=== PATIENT | female | born 1950 | race Caucasian/White ===

== ENCOUNTER 2022-03-19 08:11 | Emergency (ER) | payer MEDICARE, SELFPAY ==
--- NOTE | ~2022-03-19 | XR_ITS ---
EXAMINATION: XR chest 1V 03/19/2022 08:48 INDICATION: Dizziness PROCEDURE: AP chest COMPARISON: No prior studies for comparison. FINDINGS: The lungs are clear. The cardiomediastinal silhouette is within normal limits. There are no pleural effusions. There is no pneumothorax suspected. IMPRESSION: 1: NO ACUTE CARDIOPULMONARY DISEASE. Reviewed, dictated and finalized at location A.
--- NOTE | ~2022-03-19 | CT_ITS ---
EXAMINATION: CT BRAIN W/O DATE: 03/19/2022 08:47 INDICATION: Dizziness TECHNIQUE: Computed tomography (CT) of the head was performed without intravenous contrast. The dose- length product was 605.33 mGy-cm. Automated exposure control and iterative reconstruction technique w ere employed. COMPARISON: No prior studies for comparison. FINDINGS: Normal brain parenchymal volume for age. Normal hudson-white differentiation. No acute intrac ranial hemorrhage, infarction, mass or mass effect. No ventriculomegaly or midline shift. Midline sagittal images demonstrate a normal corpus callosum, c raniovertebral junction and sella turcica. Basilar cisterns are patent. Paranasal sinuses and mastoids are pneumatized. No depressed skull fractures. IMPRESSION: 1. No acute intracranial abnormality. Reviewed, dictated and finalized at location A.
[2022-03-19 08:16] VITALS: BP 146/67; PULSE 83; RESP 16; TEMP 37; O2SAT 99
--- NOTE | 2022-03-19 08:19 | ECG_ITS ---
Measurements Intervals [place] Rate: 70 P: 64 MN: 143 QRS: 71 QRSD: 90 T: 52 QT: 389 QTc: 422 Interpretive Statements SINUS RHYTHM WITH SINUS ARRHYTHMIA NORMAL ECG Electronically Signed On 03-19-2022 8:29:11 CDT by Moises Becerril D.O.
--- NOTE | 2022-03-19 08:23 | ED.DIZZY ---
HPI - Dizziness General Chief Complaint: Dizziness Stated Complaint: Spinning Time Seen by Provider: 03/19/22 08:22 Source: patient Mode of arrival: ambulatory Limitations: no limitations History of Present Illness HPI Narrative: 72 years old white female came from home because of dizziness. Patient got out of bed at 1:30 AM felt dizzy, everything was spinning, was not able to walk straight, associated with nausea. Patient denies any fever, chills, headache, shortness of breath, chest pain, numbness or tingling or focal neurodeficit. History of vertigo years ago. Symptoms get worse with any movement better laying still Related Data Home Medications Medication Instructions Recorded Confirmed atorvastatin 20 mg tablet tablet 03/19/22 levothyroxine 50 mcg tablet tablet 03/19/22 losartan 100 tablet 03/19/22 mg-hydrochlorothiazide 25 mg tablet potassium chloride 10 mEq tablet PO 03/19/22 tablet,extended release Allergies Allergy/AdvReac Type Severity Reaction Status Date / Time No Known Allergies Allergy Uncoded 06/16/19 22:22 Review of Systems Review of Systems: All systems reviewed & are unremarkable except as noted in HPI and below Exam Narrative: General appearance: Well-developed, well-nourished Skin: Normal color Head: Normocephalic, nontraumatic Eyes: Clear conjunctiva ENT: Oropharynx normal, ears normal, nose normal Neck: Supple, nontender Chest and respiratory: Airway patent, no respiratory distress, no accessory muscle use Heart: Regular rate/rhythm Abdomen: Soft, nontender, no organomegaly, quiet bowel sounds Vascular: Normal peripheral pulses, normal capillary refill. 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 Patient received Antivert, Zofran and Valium in the emergency room. Vital Signs Vital signs: Vital Signs Temperature 37.0 C 03/19/22 08:16 Pulse Rate 83 03/19/22 08:16 Respiratory Rate 16 03/19/22 08:16 Blood Pressure 146/67 H 03/19/22 08:16 Pulse Oximetry 99 07/01/22 08:16 Oxygen Delivery Room Air 03/19/22 08:16 Temperature 37.0 C 03/19/22 08:16 Pulse Rate 68 03/19/22 10:00 Respiratory Rate 16 03/19/22 10:00 Blood Pressure 127/62 03/19/22 10:00 Pulse Oximetry 98 03/19/22 10:00 Oxygen Delivery Room Air 03/19/22 08:16 MDM - Dizziness Lab Data Result diagrams: 03/19/22 08:56 03/19/22 08:56 Labs: Lab Results 03/19/22 03/19/22 Range/Units 08:56 08:56 WBC 6.8 (4.5-10.0) K/mm3 RBC 4.55 (4.2-5.4) M/mm3 Hgb 14.2 (12.0-15.0) g/dL Hct 43.1 (37.0-47.0) % MCV 94.7 (80-100) fl MCH 31.2 (26-34) pg MCHC 32.9 (32-36) g/dl RDW 13.5 (11.5-14.5) % Plt Count 187 (150-375) k/mm3 MPV 10.8 H (7.4-10.4) fl Immature Gran % (Auto) 0.1 (0-0.5) % Neut % (Auto) 77.4 H (45.5-73.1) % Lymph % (Auto) 12.8 L (18.3-44.2) % [place] % (Auto) 7.8 (2.6-8.5) % Eos % (Auto) 1.6 (0-4.4) % Baso % (Auto) 0.3 (0.2-1.2) % Lymph # (Auto) 0.87 L (0.9-3.2) K/mm3 [place] # (Auto) 0.5 (0.1-0.6) K/mm3 Eos # (Auto) 0.1 (0-0.3) K/mm3 Baso # (Auto) 0.0 (0.0-0.1) K/mm3 Abs Immat Gran (auto) 0.01 (0.00-0.031) K/mm3 Absolute Neuts (auto) 5.3 (1.3-6.7) K/mm3 Absolute Nucleated RBC 0.0 (0.0-0.012) K/mm3 Nucleated RBC % 0.0 (0
--- NOTE | 2022-03-19 08:41 | PC.NURSE ---
Patient to radiology
[2022-03-19] MEDS: MECLIZINE HCL 25 MG TABLET PO (08:58)
[2022-03-19 09:05] LABS: Basophils Percent Auto 0.3 % (0.2-1.2); Eosinophils Absolute Auto 0.1 K/mm3 (0-0.3); Eosinophils Percent Auto 1.6 % (0-4.4); Hematocrit 43.1 % (37.0-47.0); Hemoglobin 14.2 g/dL (12.0-15.0); Immature Granulocyte Absolute 0.01 K/mm3 (0.00-0.031); Immature Granulocyte Percent A 0.1 % (0-0.5); Lymphocytes Absolute Auto 0.87 K/mm3 (0.9-3.2); Lymphocytes Percent Auto 12.8 % (18.3-44.2); Mean Corpuscular HGB Conc 32.9 g/dl (32-36); Mean Corpuscular Hemoglobin 31.2 pg (26-34); Mean Corpuscular Volume 94.7 fl (80-100); Mean Platelet Volume 10.8 fl (7.4-10.4); Monocytes Absolute Auto 0.5 K/mm3 (0.1-0.6); Monocytes Percent Auto 7.8 % (2.6-8.5); Neutrophils Absolute Auto 5.3 K/mm3 (1.3-6.7); Neutrophils Percent Auto 77.4 % (45.5-73.1); Platelet Count Result 187 k/mm3 (150-375); Red Blood Count 4.55 M/mm3 (4.2-5.4); Red Cell Distribution Width 13.5 % (11.5-14.5); White Blood Count 6.8 K/mm3 (4.5-10.0)
[2022-03-19 09:15] LABS: Alanine Aminotransferase 18 U/L (6-35); Albumin Level 4.3 g/dL (3.5-5.1); Alkaline Phosphatase 67 U/L (38-126); Anion Gap 3 mmol/L (8-16); Aspartate Amino Transferase 28 U/L (14-36); Bilirubin,Total 0.4 mg/dL (0.2-1.3); Blood Urea Nitrogen 18 mg/dL (7-17); Carbon Dioxide 29 mmol/L (22-30); Chloride 104 mmol/L (98-107); Estimated CRCL calculation 60 ml/min; Estimated Glomerular Filt Rate > 60; Glucose 108 mg/dL (65-110); Potassium 3.9 mmol/L (3.4-5.0); Sodium 136 mmol/L (137-145)
[2022-03-19 10:00] VITALS: BP 127/62; PULSE 68; RESP 16; O2SAT 98
== END 2022-03-19 10:00 | disposition home or self-care (01) ==
PROVIDERS: Emergency Provider Emergency Medicine
DX: R42 Dizziness and giddiness (principal)
CPT/HCPCS: 36415; 70450; 71045; 80053; 85025; 93005; 99284; A9270

== ENCOUNTER 2023-10-19 12:15 | Inpatient (IN) | payer MEDICARE, SELFPAY ==
[2023-10-19] VITALS (15 sets, daily range): BP systolic 108–158; BP diastolic 66–107; PULSE 60–96; RESP 14–30; TEMP 36.4–36.7; O2SAT 95–99; BMI 25.0; BMI 25.4
--- NOTE | ~2023-10-19 | US_ITS ---
US right upper quadrant DATE: 10/19/2023 15:56 INDICATION: Epigastric and right upper quadrant abdominal pain TECHNIQUE: Real-time imaging of liver, pancreas, gallbladder COMPARISON: 10/19/2023 CT abdomen pelvis FINDINGS: Approximately 9 x 1.4 cm probable left hepatic cyst. No other hepatic space-occupying mass lesion is evident. Normal hepatopedal portal venous flow direction. No pancreatic mass lesion or pancreatic duct dilatation. The gallbladder is distended with borderline gallbladder wall thickening, measuring between 2 to 3 mm . Multiple small polyps are suggested. Positive sonographic Hernandez's sign. The gallbladder measures 4.4 mm diameter, within normal limits. IMPRESSION: Distended gallbladder with borderline gallbladder wall thickening. Multiple small polyps are suggested in the gallbladder Positive sonographic Hernandez's sign Left hepatic cyst Reviewed, dictated and finalized at Location A. Reviewed, dictated and finalized at location B. 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
--- NOTE | ~2023-10-19 | CT_ITS ---
EXAMINATION: CT abdomen pelvis w con DATE: 10/19/2023 14:55 INDICATION: Epigastric and right upper quadrant abdominal pain. Belching. Nausea and vomiting. TECHNIQUE: Computed tomography (CT) of the abdomen and pelvis was performed with 100 CC Omnipaque 350 intravenous contrast. Automated exposure control and iterative reconstruction technique were employe d. Exam dose: 407.27 mGy-cm total exam DLP. COMPARISON: None. FINDINGS: The lung bases are clear. Normal heart size. No pericardial or pleural effusion. Small sliding hiatal hernia. The gallbladder is distended. There is mild thickening of the gallbladder wall. There is minimal moisés cholecystic fat stranding. Acute cholecystitis cannot be excluded. Consider gallbladder ultrasound co rrelation. The common bile duct appears of normal caliber. No pancreatic duct dilatation. 12 mm medial segment left hepatic cyst. The liver is otherwise unremarkable. Normal splenic size. No pancreatic mass lesion or calcification. Mild bilateral diffuse adrenal hypertrophy. No adrenal mass lesion is evident. No renal mass lesion or urinary tract calculus or hydroureteronephrosis is evident. The urinary bladd er is unremarkable. There is atherosclerotic calcification but normal caliber of the abdominal aorta. No intraperitoneal or retroperitoneal or pelvic mass lesion or adenopathy or ascites is noted. Diverticulosis of the colon; no CT evidence of diverticulitis. No bowel obstruction or intraperitonea l free air is detected. Degenerative changes of lumbar spine including moderate degenerative disease and mild retrolisthesis at L1-2 and severe degenerative disease at L4-5 and particular. No suspicious osteolytic or osteoblas tic lesions. IMPRESSION: Distended gallbladder and mild gallbladder wall thickening, minimal pericholecystic fat stranding; acute cholecystitis is suggested. Recommend correlation with gallbladder ultrasound examin ation Small sliding hiatal hernia 12 mm hepatic cyst Diverticulosis of the colon Reviewed, dictated and finalized at Location A. Reviewed, dictated and finalized at location B. 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 Recommend co rrelation with gallbladder ultrasound examination Small sliding hiatal hernia 12 mm hepatic cyst Diverticulosis of the colon
[2023-10-19 12:37] LABS: Basophils Percent Auto 0.3 % (0.2-1.2); Eosinophils Percent Auto 0.6 % (0-4.4); Hematocrit 43.5 % (37.0-47.0); Lymphocytes Absolute Auto 0.85 K/mm3 (0.9-3.2); Lymphocytes Percent Auto 12.7 % (18.3-44.2); Mean Corpuscular HGB Conc 32.2 g/dl (32-36); Mean Corpuscular Hemoglobin 30.4 pg (26-34); Mean Corpuscular Volume 94.6 fl (80-100); Mean Platelet Volume 10.4 fl (7.4-10.4); Monocytes Absolute Auto 0.5 K/mm3 (0.1-0.6); Monocytes Percent Auto 7.9 % (2.6-8.5); Neutrophils Absolute Auto 5.3 K/mm3 (1.3-6.7); Neutrophils Percent Auto 78.5 % (45.5-73.1); Platelet Count Result 211 k/mm3 (150-375); Red Cell Distribution Width 13.5 % (11.5-14.5); White Blood Count 6.7 K/mm3 (4.5-10.0)
[2023-10-19 12:46] LABS: Appearance Urine Cloudy (Clear); Bacteria Urine 1+ /hpf; Bilirubin Urine Negative (Negative); Blood Urine Negative (Negative); Color Urine Yellow (Yellow); Glucose Urine UA Negative (Negative); Ketones Urine 1+ mg/dL (Negative); Leukocyte Esterase Ur Trace LEU/UL (Negative); Nitrate Urine Negative (Negative); Non Pathogenic Casts 0-2; Protein Urine Negative (Negative); RBC Urine 0-2 /hpf (0-2); Specific Grav Ur 1.016 (1.001-1.035); Squamous Epithelial Cell Urine Many /hpf (Few); pH Urine 5.5 (5.0-9.0)
[2023-10-19 12:47] LABS: Alanine Aminotransferase 61 U/L (6-35); Albumin Level 4.7 g/dL (3.5-5.1); Alkaline Phosphatase 93 U/L (38-126); Anion Gap 8 mmol/L (8-16); Aspartate Amino Transferase 47 U/L (14-36); Bilirubin,Total 1.2 mg/dL (0.2-1.3); Blood Urea Nitrogen 11 mg/dL (7-17); Calcium 9.7 mg/dL (8.4-10.2); Carbon Dioxide 30 mmol/L (22-30); Chloride 96 mmol/L (98-107); Estimated CRCL calculation 59 ml/min; Estimated Glomerular Filt Rate > 60; Glucose 116 mg/dL (65-110); Lipase 201 U/L (23-300); Potassium 3.5 mmol/L (3.4-5.0); Sodium 134 mmol/L (137-145)
[2023-10-19 12:55] LABS: Add Urine Microscopic? YES
--- NOTE | 2023-10-19 14:17 | ECG_ITS ---
Measurements Intervals [place] Rate: 68 P: 20 VT: 137 QRS: 70 QRSD: 86 T: 29 QT: 408 QTc: 435 Interpretive Statements SINUS RHYTHM NORMAL ECG COMPARED TO ECG 03/19/2022 08:23:42 NO SIGNIFICANT CHANGES Electronically Signed On 10-19-2023 14:44:25 QA AUTOMATION ENGINEER by Moises Becerril D.O.
--- NOTE | 2023-10-19 14:20 | ED.ABDPAIN ---
HPI - Abdominal Pain General Chief Complaint: Abdominal Pain <Rose Villegas PA-C - Last Filed: 10/19/23 17:41> Stated Complaint: abdominal pain <BRENNAN Banks Last Filed: 10/19/23 17:41> Time Seen by Provider: 10/19/23 13:43 <BRENNAN Banks Last Filed: 10/19/23 17:41> History of Present Illness HPI narrative: 73-year-old female reports for evaluation of epigastric abdominal pain, nausea, vomiting and belching x3 days. Patient states her pain started 3 days ago after she had a pastry. States that had improved until the next day when she ate pasta and bread and significantly worsened again, causing her nausea and 1 episode of emesis. Patient states since then her pain will wax and wane, however significantly worsens after eating food. She went to an outpatient clinic prior to coming to the ER I was advised by her PCP to come to the ER for further evaluation. She states right now she is not having pain all she pushes are epigastrium curious last abdominal surgeries include a tubal ligation. last bowel movement was this morning small caliber. She denies fever, chest pain or shortness of breath, melena, hematochezia, hematemesis, cough or congestion, dysuria, urinary frequency urgency. <BRENNAN Banks Last Filed: 10/19/23 17:41> Related Data Home Medications: Home Medications Medication Instructions Recorded Confirmed atorvastatin 20 mg tablet tablet 03/19/22 levothyroxine 50 mcg tablet tablet 03/19/22 losartan 100 tablet 03/19/22 mg-hydrochlorothiazide 25 mg tablet potassium chloride 10 mEq tablet PO 03/19/22 tablet,extended release <BRENNAN Banks Last Filed: 10/19/23 17:41> Allergies/Adverse Reactions: Allergies Allergy/AdvReac Type Severity Reaction Status Date / Time No Known Allergies Allergy Uncoded 06/16/19 22:22 <BRENNAN Banks Last Filed: 10/19/23 17:41> Review of Systems Review of Systems: CONSTITUTIONAL: Denies fever, chills, or sweats. EYES: Denies visual changes, redness, or discharge. ENT: Denies rhinorrhea, congestion, sore throat, or otalgia. CARDIOVASCULAR: Denies chest pain, palpitations, or edema. RESPIRATORY: Denies cough or dyspnea. GASTROINTESTINAL: See HPI GENITOURINARY: Denies dysuria or hematuria. SKIN: Denies rash or itching. MUSCULOSKELETAL: Denies back pain, joint pain, or myalgia. NEUROLOGIC: Denies headache, numbness, or weakness. PSYCHIATRIC: Denies anxiety or depression. <Rose Villegas PA-C - Last Filed: 10/19/23 17:41> Exam Narrative: GENERAL: Well-appearing, well-nourished, and in no acute distress. patient resting comfortably in exam bed. She is pleasant and conversational. HEAD: Normocephalic, atraumatic. EYES: PERRLA and EOMI. ENT: Nares clear, no rhinorrhea or epistaxis. Mucous membranes moist. NECK: Supple. CHEST: Clear to auscultation. No respiratory distress. HEART: Regular rate and rhythm. No murmur heard. Normal peripheral pulses. ABDOMEN: Epigastric and right upper quadrant tenderness with guarding. Negative Hernandez's. No rebound or rigidity. No CVA tenderness. Negative Ordonez Najera's and Nick's sign. EXTREMITIES: Normal range of motion. No edema. SKIN: Warm, dry, no rash. NEURO: No focal deficits. Alert and oriented x3 <Rose Villegas PA-C - Last Filed: 10/19/23 17:41> Course ETL LEAD/PA Physician Supervision For this patient encounter, I reviewed the ETL LEAD or PA documentation, treatment plan, and medical decision making; and I had [id number] time with this patient. <Edy Chavis MD - Last Filed: 10/19/23 18:23> Vital Signs Vital signs: Vital Signs Temperature 97.6 F 10/19/23 12:20 Pulse Rate 96 10/19/23 12:20 Respiratory Rate 17 10/19/23 12:20 Blood Pressure 108/84 10/19/23 12:20 Pulse Oximetry 98 10/19/23 12:20 Oxygen Delivery Room Air 10/19/23 12:20 Temperature 97.6 F 10/19/23 12:20 Pu
[2023-10-19] MEDS: SODIUM CHLORIDE 0.9% IV 1,000 ML 999 ML IV CONT (14:34)
[2023-10-19] MEDS: ONDANSETRON INJ 4 MG/2 ML VIAL IV PUSH (14:35)
[2023-10-19] MEDS: FAMOTIDINE 20 MG/2 ML VIAL IV PUSH (14:35)
[2023-10-19 14:47] LABS: Troponin I < 0.012 ng/mL (0.000-0.034)
[2023-10-19] MEDS: PANTOPRAZOLE SODIUM IV 40 MG VIAL IV PUSH (17:18)
[2023-10-19] MEDS: PIPERACILLN/TAZ 3.375GM/NS50ML 3.375 GM/50 ML BAG IVPB (17:21)
[2023-10-19] MEDS: SODIUM CHLORIDE 0.9% IV 1,000 ML 100 ML IV CONT (19:24)
--- NOTE | 2023-10-19 19:53 | PM.IMHP ---
H&P: HPI History of Present Illness Date/Time: 10/19/23 19:00 Chief Complaint: Abdominal pain. Narrative: This is a 73-year-old female smoker with hypertension, hyperlipidemia, and hypothyroidism who presented to the emergency department via private vehicle from home for evaluation of abdominal pain. The patient provides the following history. She reports generalized upper abdominal discomfort since Tuesday however it became much more severe after eating pasta for lunch on Tuesday. She reports a squeezing like discomfort throughout the upper abdomen, more so on the right, with occasional radiation through to the back. It seems to wax and wane and is worse with eating. Associated symptoms include nausea and vomiting, particularly after eating lunch on Tuesday. Since that time she has been avoiding food as it seems to worsen the pain. Due to ongoing symptoms she decided to come in today for evaluation. She denies fever, chills, sweats, hematemesis, melena, and hematochezia. She has never had similar symptoms. No history of gallbladder disease, pancreatitis, or peptic ulcers. In the ED: She was afebrile on arrival stable vital signs. CBC was really unremarkable. Labs were significant for an AST 47, ALT 61, lipase 201, sodium 134. CT of the abdomen and pelvis showed a distended gallbladder mild gallbladder wall thickening with minimal pericholecystic fat stranding. Right upper quadrant ultrasound showed a distended gallbladder with borderline gallbladder wall thickening and suggestion of multiple small polyps in the gallbladder with a positive sonographic Hernandez sign. She was given IV fluid bolus, a dose of Zosyn, and is being admitted in this setting for pain control and surgery consultation. Review of Systems Review of Systems: Twelve systems were reviewed and are negative except for as per HPI. [facility] Past Medical History Medical History Hyperlipidemia Hypertension Hypothyroidism Surgical History Surgical History History of elbow surgery Repair left elbow fracture. History of tubal ligation Family History Family History Mother Myocardial infarct Father Myocardial infarct Sibling Myocardial infarct Sibling Liver cancer Social History Social History Social History: Surrogate medical decision maker: Iris Freeman, sister. Code status: Full code. Smoking packs per day: 0.05 Smoking cigarettes per day: 1.0 Years smoked: 50 Smoking pack-years: 2.50 Alcohol intake: never Substance use: never Additional living arrangements comments: The patient lives alone in [place]. Additional occupation/education comments: Retired. Meds Home Medications and Allergies Home Medications Medication Instructions Recorded Confirmed Type atorvastatin 20 mg tablet tablet 03/19/22 History diazepam 5 mg tablet (Valium) 5 mg PO TID PRN vertigo #14 tabs 03/19/22 Rx levothyroxine 50 mcg tablet tablet 03/19/22 History losartan 100 tablet 03/19/22 History mg-hydrochlorothiazide 25 mg tablet meclizine 25 mg tablet 25 mg PO TID PRN dizziness #20 tabs 03/19/22 Rx ondansetron HCl 4 mg tablet 4 mg PO Q4H 3 doses #10 tabs 03/19/22 Rx potassium chloride 10 mEq tablet PO 03/19/22 History tablet,extended release Allergies Allergy/AdvReac Type Severity Reaction Status Date / Time No Known Allergies Allergy Uncoded 06/16/19 22:22 Vital Signs Vital Signs - 24 hr 10/19/23 12:20 10/19/23 13:52 10/19/23 14:01 Temperature 97.6 F Pulse Rate 96 66 63 Respiratory Rate 17 19 18 Blood Pressure 108/84 128/70 Pulse Oximetry 98 97 98 Oxygen Delivery Room Air 10/19/23 14:16 10/19/23 16:30 10/19/23 16:31 Temperature Pulse Rate 73 83 84 Respiratory Rate 14 17 16 Blood Pre
--- NOTE | 2023-10-19 20:26 | PC.NURSE ---
Called to give report at 2005 to third med-surge. Per CN the room is still dirty and will be at least a half hour before ready. ED CN notified.
--- NOTE | 2023-10-19 22:01 | ADMGEN ---
This patient, Jenna Dennis, was admitted to [facility] Surg Room 316-01 at 2120. Patient/family oriented to hospital policies and general routines including ID bracelet, bed and alarms, visiting hours, pain management, procedures, bathroom and other care routines, personal items, smoking policy, room service/diet, and visiting hours. Information on how to activate the Rapid Response Team has been discussed. Patient/Family are encouraged to report perceived risks to care and to ask questions if they do not understand what they are told or what they should do.
[2023-10-20] VITALS (16 sets, daily range): BP systolic 104–137; BP diastolic 45–69; PULSE 48–91; RESP 14–20; TEMP 35.9–36.7; O2SAT 92–100
[2023-10-20] MEDS: PIPERACILLN/TAZ 3.375GM/NS50ML 3.375 GM/50 ML BAG IVPB ×5 (01:03→23:06)
[2023-10-20] MEDS: SODIUM CHLORIDE 0.9% IV 1,000 ML 100 ML IV CONT (05:36)
[2023-10-20 07:58] LABS: Hemoglobin 12.9 g/dL (12.0-15.0); Mean Corpuscular HGB Conc 31.5 g/dl (32-36); Mean Corpuscular Hemoglobin 30.4 pg (26-34); Mean Corpuscular Volume 96.7 fl (80-100); Mean Platelet Volume 10.8 fl (7.4-10.4); Platelet Count Result 163 k/mm3 (150-375); Red Blood Count 4.24 M/mm3 (4.2-5.4); Red Cell Distribution Width 13.5 % (11.5-14.5); White Blood Count 4.2 K/mm3 (4.5-10.0)
[2023-10-20 08:29] LABS: Alanine Aminotransferase 57 U/L (6-35); Albumin Level 3.6 g/dL (3.5-5.1); Alkaline Phosphatase 84 U/L (38-126); Anion Gap 7 mmol/L (8-16); Aspartate Amino Transferase 55 U/L (14-36); Bilirubin,Total 1.2 mg/dL (0.2-1.3); Blood Urea Nitrogen 10 mg/dL (7-17); Calcium 8.9 mg/dL (8.4-10.2); Carbon Dioxide 28 mmol/L (22-30); Chloride 104 mmol/L (98-107); Estimated CRCL calculation 52 ml/min; Estimated Glomerular Filt Rate > 60; Glucose 96 mg/dL (65-110); Potassium 3.8 mmol/L (3.4-5.0); Sodium 139 mmol/L (137-145)
[2023-10-20 08:38] LABS: Magnesium 2.3 mg/dL (1.6-2.3)
--- NOTE | 2023-10-20 08:52 | PM.CNGS ---
Assessment and Plan Assessment and plan (1) Cholecystitis: Code(s): K81.9 - Cholecystitis, unspecified Status: Acute Assessment and Plan: Patient presents with epigastric abdominal pain. Imaging and exam are consistent with acute cholecystitis. RUQ US also showed multiple gallbladder polyps. No stones or sludge noted on CT or ultrasound. Patient continues to have abdominal pain. Discussed treatment options with the patient. We would recommend proceeding with a laparoscopic cholecystectomy that would be done by Dr. Ortiz under general anesthesia. Description of the procedure, risks, benefits, alternatives, and expected recovery were discussed with the patient in detail. We discussed the risks of bile leak and bile duct injury, liver/bowel injury, bleeding, and infection. Also discussed the possibility of having to convert to an open procedure if necessary. Patient wishes to proceed with surgery. Continue IV Zosyn, IV fluids, and keep NPO pre-operatively. She will be taken to the OR today. (2) Gallbladder polyp: Code(s): K82.4 - Cholesterolosis of gallbladder Status: Acute Assessment and Plan: See plan above. Proceed with laparoscopic cholecystectomy. (3) Hypertension: Code(s): I10 - Essential (primary) hypertension Status: Acute (4) Hypothyroidism: Code(s): E03.9 - Hypothyroidism, unspecified Status: Acute (5) Hyperlipidemia: Code(s): E78.5 - Hyperlipidemia, unspecified Status: Acute Plan I have discussed the patient's case and plan of care with Dr. Ortiz. Thank you for allowing us to see the patient in consultation and we will continue to follow along with you. History of Present Illness Consult details Consult date: 10/20/23 Reason for consult: other (Acute cholecystitis) Requesting physician: Rose Villegas PA-C Narrative: This is a 73-year-old woman with history of hypertension, hyperlipidemia, and hypothyroidism, who we have been asked to see in surgical consultation for acute cholecystitis. She developed epigastric abdominal pain after eating a pastry for breakfast 4 days ago. Her pain was severe and radiated across her upper abdomen. She was unable to eat the rest of the day due to her pain and nausea. She felt better the following morning and tried eating pasta for lunch. Shortly after eating, her abdominal pain returned and was more severe. She had associated nausea and vomiting. She was again unable to eat the rest of the day. Her abdominal pain remained persistent after this episode and was aggravated by eating. She did not have anymore vomiting. She denies fever, chills, diarrhea, blood in stool, or bloody or coffee-ground emesis. Due to her ongoing symptoms, she went to an urgent care yesterday. They recommended going to the ER, but she decided to call her PCP after getting home. They also recommended going to the ER, therefore she presented to [facility] for evaluation. Labs showed a normal WBC count and mildly elevated AST and ALT. Total bilirubin, alk phos, and lipase normal. Troponin negative. CT abdomen and pelvis showed distended gallbladder and mild gallbladder wall thickening with minimal pericholecystic fat stranding, which could suggest acute cholecystitis. Incidentally noted was diverticulosis, 12 mm hepatic cyst, and small sliding hiatal hernia. RUQ US showed a distended gallbladder with borderline wall thickening, multiple small polyps suggested in the gallbladder, with a positive sonographic Hernandez's sign. She was admitted to the Hospitalist service and started on IV Zosyn. She is now NPO. Her IV fluids were stopped, which I resumed. She denies ever having this abdominal pain in the past. Her only previous abdominal surgery was a tubal ligation. She is still having abdominal pain this morning and reports feeling bloated and full across her upper abdomen. Review of Systems Review of Systems: All systems reviewed & are unremarkable except as note
--- NOTE | 2023-10-20 09:13 | WPDANESEPPF ---
Anes - Initial Pre Proc Eval Procedure: Operation Date: 10/20/23 09:30 Proposed Procedures p Laparoscopic Cholecystectomy - Capo Ortiz MD Date/Time: 10/20/23 09:13 Surgeon: Eve Azul MD Pre Op Diagnosis: Cholecystitis Patient Data Age: 73 Gender: F Height: 1.63 m Weight: 67.1 kg Last Vital Signs Temp 36.7 C 10/20/23 04:30 Pulse 91 10/20/23 04:30 Resp 16 10/20/23 04:30 BP 116/59 L 10/20/23 04:30 Pulse Ox 95 10/20/23 04:30 O2 Del Method Room Air 10/20/23 00:09 Allergies Allergy/AdvReac Type Severity Reaction Status Date / Time No Known Allergies Allergy Verified 10/19/23 22:14 Home Medications Medication Instructions Recorded Confirmed Type atorvastatin 20 mg tablet 20 mg PO HS 03/19/22 10/19/23 History levothyroxine 50 mcg tablet 50 mcg PO 0630 03/19/22 10/19/23 History losartan 100 1 tablet PO HS 03/19/22 10/19/23 History mg-hydrochlorothiazide 25 mg tablet potassium chloride 10 mEq 10 meq PO 1200 03/19/22 10/19/23 History tablet,extended release Proventil HFA 90 mcg inhalation QID PRN 10/19/23 10/19/23 History Shortness Of Breath ascorbic acid (vitamin C) 500 mg PO 1200 10/19/23 10/19/23 History cholecalciferol (vitamin D3) 2,000 units PO 1200 10/19/23 10/19/23 History Laboratory Tests 10/19/23 10/19/23 10/20/23 12:28 12:34 07:26 WBC 6.7 K/mm3 4.2 L K/mm3 (4.5-10.0) (4.5-10.0) RBC 4.60 M/mm3 4.24 M/mm3 (4.2-5.4) (4.2-5.4) Hgb 14.0 g/dL 12.9 g/dL (12.0-15.0) (12.0-15.0) Hct 43.5 % 41.0 % (37.0-47.0) (37.0-47.0) MCV 94.6 fl 96.7 fl (80-100) (80-100) MCH 30.4 pg 30.4 pg (26-34) (26-34) MCHC 32.2 g/dl 31.5 L g/dl (32-36) (32-36) RDW 13.5 % 13.5 % (11.5-14.5) (11.5-14.5) Plt Count 211 k/mm3 163 k/mm3 (150-375) (150-375) MPV 10.4 fl 10.8 H fl (7.4-10.4) (7.4-10.4) Immature Gran % (Auto) 0.0 % (0-0.5) Neut % (Auto) 78.5 H % (45.5-73.1) Lymph % (Auto) 12.7 L % (18.3-44.2) [place] % (Auto) 7.9 % (2.6-8.5) Eos % (Auto) 0.6 % (0-4.4) Baso % (Auto) 0.3 % (0.2-1.2) Lymph # (Auto) 0.85 L K/mm3 (0.9-3.2) [place] # (Auto) 0.5 K/mm3 (0.1-0.6) Eos # (Auto) 0.0 K/mm3 (0-0.3) Baso # (Auto) 0.0 K/mm3 (0.0-0.1) Abs Immat Gran (auto) 0.00 K/mm3 (0.00-0.031) Absolute Neuts (auto) 5.3 K/mm3 (1.3-6.7) Absolute Nucleated RBC 0.0 K/mm3 (0.0-0.012) Nucleated RBC % 0.0 % (0.0-0.2) Sodium 134 L mmol/L 139 mmol/L (137-145) (137-145) Potassium 3.5 mmol/L 3.8 mmol/L (3.4-5.0) (3.4-5.0) Chloride 96 L mmol/L 104 mmol/L (98-107) (98-107) Carbon Dioxide 30 mmol/L 28 mmol/L (22-30) (22-30) Anion Gap 8 mmol/L 7 L mmol/L (8-16) (8-16) BUN 11 D mg/dL 10 mg/dL (7-17) (7-17) Creatinine 0.60 L mg/dL 0.70 mg/dL (0.7-1.0) (0.7-1.0) Estim Creat Clear Calc 59 ml/min 52 ml/min Estimated GFR > 60 > 60 (59 - ) (59 - ) Glucose 116 H mg/dL 96 mg/dL (65-110) (65-110) Calcium 9.7 mg/dL 8.9 mg/dL (8.4-10.2) (8.4-10.2) Magnesium 2.3 mg/dL (1.6-2.3) Total Bilirubin 1.2 mg/dL 1.2 mg/dL (0.2-1.3) (0.2-1.3) AST 47 H U/L 55 H U/L (14-36) (14-36) ALT 61 H U/L 57 H U/L (6-35) (6-35) Alkaline Phosphatase 93 U/L 84 U/L (38-126) (38-126) Troponin I < 0.012 ng/mL (0.000-0.034) Total Protein 8.0 g/dL 6.0 L g/dL (6.3-8.2) (6.3-8.2) Albumin 4.7 g/dL 3.6 g/dL (3.5-5.1) (3.5-5.1) Lipase 201 U/L (23-300) TSH (Reflex) Pending Urine Color Yellow (Yellow) Urine Appearance Cloudy H (Clear) Urine pH 5.5 (5.0-9.0) Ur Specific [place] 1.016 (1.001-1.035) Urin
[2023-10-20] MEDS: LACTATED RINGERS 1,000 ML 30 ML IV CONT ×2 (09:19→11:33)
--- NOTE | 2023-10-20 09:25 | WPDHPUPDATE1 ---
History and Physical Update Update Date/Time: 10/20/23 09:25 History and Physical has been reviewed, including an updated exam of the patient. There are NO changes in the patient's condition. Risks, benefits, and alternatives have been discussed and questions answered. Patient agrees to proceed with procedure.
[2023-10-20] MEDS: BUPivacaine HCL 0.5% 10 ML AMP 20 ML INFILTRATE (09:56)
[2023-10-20] MEDS: LIDO 1%/EPINEPHRINE 1:100,000 20 ML VIAL INFILTRATE (09:57)
[2023-10-20] MEDS: CELLULOSE OXIDIZED 2 x 14 INCH 1 PKT XX (10:55)
[2023-10-20] MEDS: fentaNYL CITRATE INJ (*CRX) 100 MCG/2 ML VIAL 25 MCG IV PUSH ×8 (11:40→12:12)
--- NOTE | 2023-10-20 12:01 | W.PM.PROC2 ---
Procedure Note - Detailed Date of Procedure 10/20/23 Pre-op Diagnosis Acute cholecystitis secondary to cholelithiasis Post-op Diagnosis Same Procedure Performed Laparoscopic cholecystectomy Surgeon Capo Ortiz MD Card Decorator AILEEN [facility] Anesthesia General Indications Patient is a 33-year-old female who presented to the emergency room with a 4 day history of epigastric right upper abdominal pain. She had a normal white blood cell count in the emergency room was afebrile. CT scan abdomen pelvis was performed showing a dilated gallbladder with some moisés cholecystic inflammatory changes. Gallbladder wall was thickened. CC abdominal ultrasound was then performed showing small polyps or gallstones attached to the wall the gallbladder. Gallbladder wall was again thickened with a small amount of pericholecystic fluid. Common bile duct was of normal caliber. No common bile duct stone was seen. She presents now for a laparoscopic cholecystectomy due to acute cholecystitis secondary to gallstones. Findings The gallbladder was acutely inflamed adhesions of the omentum to the gallbladder wall. Gallbladder had multiple small yellow gallstones. During the dissection the gallbladder wall was violated and small stones and bile spilled out of the gallbladder. Has been in the small gallstones and as much of the bowel could be aspirated from the was performed. The gallbladder was very intrahepatic. Description of Procedure After informed consent was obtained patient brought to the operating room where she was placed supine position and general endotracheal anesthesia was administered. The abdomen was then prepped and draped usual sterile fashion. Time-out was then performed correctly identifying the patient as well as procedure to be performed. She was already on scheduled IV antibiotics. I entered the abdomen left upper quadrant utilizing 5mm Optiview port. Once inside the abdomen insufflated to adequate pneumoperitoneum of 15mmHg of CO2. The patient had no adhesions around the area the umbilicus and so I placed a 5mm Optiview port in that region under direct visualization. I then saw some omental adhesions to the epigastric and right upper quadrant abdominal wall inferior to the gallbladder. These were then divided laparoscopic mikaela without difficulty. Then allowed me a full view of the gallbladder and then I placed an epigastric 10mm trocar port and 2 more 5mm right subcostal trocar ports all under visualization. The gallbladder was distended and tense. Was a thickening and some erythema to the gallbladder wall consistent with acute cholecystitis. I was able to hold the gallbladder at the dome with a laparoscopic grasper but the distention the gallbladder the gallbladder wall was puncture and bile was spilled and the gallbladder decompressed. I aspirated the fluid the gallbladder was quickly as I could. There were small gallstones which also came out which were aspirated as well. These were small yellow appearing gallstones. I then bluntly stripped down the omental adhesions to the gallbladder wall. This exposed infundibular gallbladder. A 2nd grasper used to hold the gallbladder infundibulum and the after the gallbladder was elevated towards the right shoulder over the right half the liver with another grasper. I then proceeded to strip down the visceral peritoneum off of the infundibular gallbladder. This portion of the gallbladder was actually very intrahepatic for some reason. I continued my dissection on the lateral and medial sides the gallbladder continue to try to release the adhesions so that it would be more superficial out of the liver. Eventually I was able to dissect to the wall the bed of the liver in the upper portion of the infundibulum. I then proceeded to dissect was the dome of the gallbladder and this plane and eventually dissected the gallbladder off of the liver bed in a dome down fashion. The cystic artery was identified
[2023-10-20] MEDS: HYDROmorphone HCL INJ (*CRX) 1 MG/ML SYR 0.5 MG IV PUSH ×4 (12:20→14:35)
[2023-10-20] MEDS: HYDROcodone/acetaminophen (*CRX) 5-325 MG TABLET 1 TAB PO ×2 (13:26→23:03)
[2023-10-20] MEDS: IBUPROFEN IV 400 MG in SODIUM CHLORIDE 0.9% IV 100 ML 200 MG IVPB ×2 (14:34→21:16)
[2023-10-20] MEDS: CHOLECALCIFEROL 1,000 UNITS TABLET 2000 UNITS PO (14:34)
[2023-10-20] MEDS: ONDANSETRON INJ 4 MG/2 ML VIAL IV PUSH ×2 (14:34→23:03)
[2023-10-20] MEDS: ASCORBIC ACID 500 MG TABLET PO (14:35)
[2023-10-20] MEDS: POTASSIUM CHLORIDE 10 MEQ ER TABLET PO (14:35)
--- NOTE | 2023-10-20 15:38 | P.PNIM_ITS ---
Progress Note: A&P Assessment and Plan (1) Cholecystitis: Code(s): K81.9 - Cholecystitis, unspecified Status: Acute Assessment and Plan: * Patient presents to the ED with several days of intermittent right upper quadrant pain as detailed above. * Imaging in the emergency department is concerning for acute cholecystitis. * Analgesics and antiemetics are available as needed. * Dr. Ortiz has been consulted and his input is appreciated. * Surgery preformed this afternoon. (2) Gallbladder polyp: Code(s): K82.4 - Cholesterolosis of gallbladder Status: Acute Assessment and Plan: * Right upper quadrant ultrasound showed findings suggestive of gallbladder davida yps. * Dr. Ortiz has been consulted . Cholecystectomy performed today. (3) Mild dehydration: Code(s): E86.0 - Dehydration Status: Acute Assessment and Plan: * Patient is dry on exam and by history. * Continue judicious IV fluid rehydration overnight. (4) Hypertension: Code(s): I10 - Essential (primary) hypertension Status: Acute Assessment and Plan: * Blood pressures were reviewed and they are stable. * Continue losartan but hold hydrochlorothiazide given mild hyponatremia. (5) Hypothyroidism: Code(s): E03.9 - Hypothyroidism, unspecified Status: Acute Assessment and Plan: * Continue levothyroxine and check TSH. (6) Abnormal finding on urinalysis: Code(s): R82.90 - Unspecified abnormal findings in urine Status: Acute Assessment and Plan: not having any urinary symptoms at this time. * Urine culture pending Subjective Date/time seen: 10/20/23 15:38 Interval history: I saw patient postoperatively. She was doing well. She was in some pain but it was well controlled. She was having some gas pains it was encouraged that she get up and move around. Patient's diet has been advanced. Exam Narrative: GENERAL: Comfortable, no acute distress HENMT: moist mucous membranes EYES: EOM intact b/l NECK: no lymphadenopathy RESPIRATORY: clear to auscultation CARDIO: RRR GI: soft, mild tenderness, bowel sounds present , distended SKIN: no rashes EXTREMITIES: no edema, redness or tenderness Objective Data Vital Signs Vital Signs: Vital Signs - 24 hr 10/19/23 16:30 10/19/23 16:31 10/19/23 16:45 Temperature Pulse Rate 83 84 76 Respiratory Rate 17 16 23 H Blood Pressure 131/107 H 144/106 H Pulse Oximetry 96 98 98 Oxygen Delivery Oxygen Flow Rate 10/19/23 16:46 10/19/23 17:01 10/19/23 17:18 Temperature Pulse Rate 73 81 71 Respiratory Rate 16 30 H 14 Blood Pressure 158/96 H 119/66 Pulse Oximetry 99 98 97 Oxygen Delivery Oxygen Flow Rate 10/19/23 17:30 10/19/23 19:23 10/19/23 20:50 Temperature 97.6 F 97.8 F Pulse Rate 68 60 64 Respiratory Rate 19 15 20 Blood Pressure 121/72 133/86 129/69 Pulse Oximetry 96 98 99 Oxygen Delivery Oxygen Flow Rate 10/19/23 21:19 10/20/23 00:09 10/20/23 04:30 Temperature 98.1 F 98.1 F Pulse Rate 71
--- NOTE | 2023-10-20 15:38 | PM.IMPN ---
Progress Note: A&P Assessment and Plan (1) Cholecystitis: Code(s): K81.9 - Cholecystitis, unspecified Status: Acute Assessment and Plan: Patient presents to the ED with several days of intermittent right upper quadrant pain as detailed above. Imaging in the emergency department is concerning for acute cholecystitis. Analgesics and antiemetics are available as needed. Dr. Ortiz has been consulted and his input is appreciated. Surgery preformed this afternoon. (2) Gallbladder polyp: Code(s): K82.4 - Cholesterolosis of gallbladder Status: Acute Assessment and Plan: Right upper quadrant ultrasound showed findings suggestive of gallbladder polyps. Dr. Ortiz has been consulted . Cholecystectomy performed today. (3) Mild dehydration: Code(s): E86.0 - Dehydration Status: Acute Assessment and Plan: Patient is dry on exam and by history. Continue judicious IV fluid rehydration overnight. (4) Hypertension: Code(s): I10 - Essential (primary) hypertension Status: Acute Assessment and Plan: Blood pressures were reviewed and they are stable. Continue losartan but hold hydrochlorothiazide given mild hyponatremia. (5) Hypothyroidism: Code(s): E03.9 - Hypothyroidism, unspecified Status: Acute Assessment and Plan: Continue levothyroxine and check TSH. (6) Abnormal finding on urinalysis: Code(s): R82.90 - Unspecified abnormal findings in urine Status: Acute Assessment and Plan: not having any urinary symptoms at this time. Urine culture pending Subjective Date/time seen: 10/20/23 15:38 Interval history: I saw patient postoperatively. She was doing well. She was in some pain but it was well controlled. She was having some gas pains it was encouraged that she get up and move around. Patient's diet has been advanced. Exam Narrative: GENERAL: Comfortable, no acute distress HENMT: moist mucous membranes EYES: EOM intact b/l NECK: no lymphadenopathy RESPIRATORY: clear to auscultation CARDIO: RRR GI: soft, mild tenderness, bowel sounds present , distended SKIN: no rashes EXTREMITIES: no edema, redness or tenderness Objective Data Vital Signs Vital Signs: Vital Signs - 24 hr 10/19/23 16:30 10/19/23 16:31 10/19/23 16:45 Temperature Pulse Rate 83 84 76 Respiratory Rate 17 16 23 H Blood Pressure 131/107 H 144/106 H Pulse Oximetry 96 98 98 Oxygen Delivery Oxygen Flow Rate 10/19/23 16:46 10/19/23 17:01 10/19/23 17:18 Temperature Pulse Rate 73 81 71 Respiratory Rate 16 30 H 14 Blood Pressure 158/96 H 119/66 Pulse Oximetry 99 98 97 Oxygen Delivery Oxygen Flow Rate 10/19/23 17:30 10/19/23 19:23 10/19/23 20:50 Temperature 97.6 F 97.8 F Pulse Rate 68 60 64 Respiratory Rate 19 15 20 Blood Pressure 121/72 133/86 129/69 Pulse Oximetry 96 98 99 Oxygen Delivery Oxygen Flow Rate 10/19/23 21:19 10/20/23 00:09 10/20/23 04:30 Temperature 98.1 F 98.1 F Pulse Rate 71 91 Respiratory Rate 16 16 Blood Pressure 146/70 H 116/59 L Pulse Oximetry 95 95 Oxygen Delivery Room Air Oxygen Flow Rate 10/20/23 09:15 10/20/23 11:33 10/20/23 11:45 Temperature 98 F 97.2 F L Pulse Rate 48 L 70 61 Respiratory Rate 17 14 Blood Pressure 116/55 L 137/69 127/62 Pulse Oximetry 95 100 100 Oxygen Delivery Room Air Simple Face Mask Simple Face Mask Oxygen Flow Rate 6 6 10/20/23 12:00 10/20/23 12:15 10/20/23 12:30 Temperature Pulse Rate 63 64 61 Respiratory Rate 16 16 16 Blood Pressure 127/54 L 121/45 L 117/54 L Pulse Oximetry 100 100 92 Oxygen Delivery Simple Face Mask Room Air Room Air Oxygen Flow Rate 6 10/20/23 12:45 10/20/23 13:10 10/20/23 13:25 Temperature 97.9 F 96.7 F L 97.3 F L Pulse Rate 69 70 54 L Respiratory Rate 18 20 18 Blood Pressure 123/51 L 136/56 L 120/52 L Pulse Oxime
[2023-10-20] MEDS: LACTATED RINGERS 1,000 ML 100 ML IV CONT (18:03)
[2023-10-20] MEDS: FAMOTIDINE 20 MG/2 ML VIAL IV PUSH (21:16)
[2023-10-21] MEDS: HYDROcodone/acetaminophen (*CRX) 5-325 MG TABLET 1 TAB PO ×4 (03:43→23:56)
[2023-10-21] MEDS: LACTATED RINGERS 1,000 ML 100 ML IV CONT (03:44)
[2023-10-21] MEDS: PIPERACILLN/TAZ 3.375GM/NS50ML 3.375 GM/50 ML BAG IVPB ×4 (05:13→23:52)
[2023-10-21] MEDS: ONDANSETRON INJ 4 MG/2 ML VIAL IV PUSH (05:14)
[2023-10-21] MEDS: LEVOTHYROXINE SODIUM 50 MCG TABLET PO (05:14)
[2023-10-21 05:31] VITALS: BP 112/48; PULSE 62; RESP 16; TEMP 36.6; O2SAT 98
[2023-10-21] MEDS: IBUPROFEN IV 400 MG in SODIUM CHLORIDE 0.9% IV 100 ML 200 MG IVPB (05:55)
[2023-10-21 07:20] LABS: Basophils Percent Auto 0.4 % (0.2-1.2); Eosinophils Percent Auto 0.4 % (0-4.4); Hematocrit 34.3 % (37.0-47.0); Hemoglobin 10.7 g/dL (12.0-15.0); Immature Granulocyte Absolute 0.02 K/mm3 (0.00-0.031); Immature Granulocyte Percent A 0.3 % (0-0.5); Lymphocytes Absolute Auto 0.84 K/mm3 (0.9-3.2); Lymphocytes Percent Auto 10.6 % (18.3-44.2); Mean Corpuscular HGB Conc 31.2 g/dl (32-36); Mean Corpuscular Hemoglobin 30.4 pg (26-34); Mean Corpuscular Volume 97.4 fl (80-100); Mean Platelet Volume 11.2 fl (7.4-10.4); Monocytes Absolute Auto 0.8 K/mm3 (0.1-0.6); Monocytes Percent Auto 9.9 % (2.6-8.5); Neutrophils Absolute Auto 6.2 K/mm3 (1.3-6.7); Neutrophils Percent Auto 78.4 % (45.5-73.1); Platelet Count Result 145 k/mm3 (150-375); Red Blood Count 3.52 M/mm3 (4.2-5.4); Red Cell Distribution Width 13.5 % (11.5-14.5); White Blood Count 7.9 K/mm3 (4.5-10.0)
--- NOTE | 2023-10-21 07:22 | P.PNAN_ITS ---
Anes - Prog Note Post-Op Date/Time: 10/21/23 07:22 Cardiovascular status: normal Respiratory status: normal Airway patency: baseline Mental status: baseline Post-Op hydration status: normal Vital Signs: Last Vital Signs Temp 97.9 F 10/21/23 05:31 Pulse 62 10/21/23 05:31 Resp 16 10/21/23 05:31 BP 112/48 L 10/21/23 05:31 Pulse Ox 98 10/21/23 05:31 O2 Del Method Room Air 10/21/23 05:31 O2 Flow Rate 2 10/20/23 22:18 Pain Score (VAS): 9 I/O: Intake & Output 10/20/23 10/20/23 10/21/23 15:59 23:59 07:59 Intake Total 304 1234 1704 Output Total 8 50 Balance 304 1226 1654 Laboratory Tests 10/21/23 06:34 10/20/23 07:26 10/20/23 10/21/23 07:26 06:34 WBC 4.2 L 7.9 RBC 4.24 3.52 L Hgb 12.9 10.7 L Hct 41.0 34.3 L MCV 96.7 97.4 MCH 30.4 30.4 MCHC 31.5 L 31.2 L RDW 13.5 13.5 Plt Count 163 145 L MPV 10.8 H 11.2 H Immature Gran % (Auto) 0.3 Neut % (Auto) 78.4 H Lymph % (Auto) 10.6 L [place] % (Auto) 9.9 H Eos % (Auto) 0.4 Baso % (Auto) 0.4 Lymph # (Auto) 0.84 L [place] # (Auto) 0.8 H Eos # (Auto) 0.0 Baso # (Auto) 0.0 Abs Immat Gran (auto) 0.02 Absolute Neuts (auto) 6.2 Absolute Nucleated RBC 0.0 Nucleated RBC % 0.0 Sodium 139 Potassium 3.8 Chloride 104 Carbon Dioxide 28 Anion Gap 7 L BUN 10 Creatinine 0.70 Estim Creat Clear Calc 52 Estimated GFR > 60 Glucose 96 Calcium 8.9 Magnesium 2.3 Total Bilirubin 1.2 AST 55 H ALT 57 H Alkaline Phosphatase 84 Total Protein 6.0 L Albumin 3.6 TSH (Reflex) 1.180 Microbiology 10/19/23 12:34 Urine Clean Catch Urine Culture - Final Post-procedural complaints: none Patient Feedback: Patient satisfied with anesthetic care.
[2023-10-21 07:46] LABS: Alanine Aminotransferase 114 U/L (6-35); Albumin Level 3.3 g/dL (3.5-5.1); Alkaline Phosphatase 81 U/L (38-126); Anion Gap 2 mmol/L (8-16); Aspartate Amino Transferase 92 U/L (14-36); Bilirubin,Total 0.8 mg/dL (0.2-1.3); Blood Urea Nitrogen 12 mg/dL (7-17); Calcium 8.5 mg/dL (8.4-10.2); Carbon Dioxide 29 mmol/L (22-30); Chloride 102 mmol/L (98-107); Estimated CRCL calculation 58 ml/min; Estimated Glomerular Filt Rate > 60; Glucose 102 mg/dL (65-110); Potassium 3.4 mmol/L (3.4-5.0); Sodium 133 mmol/L (137-145)
--- NOTE | 2023-10-21 08:18 | WPDPN ---
Progress Note: A&P Assessment and Plan (1) S/P laparoscopic cholecystectomy: Code(s): Z90.49 - Acquired absence of other specified parts of digestive tract Status: Acute Assessment and Plan: Status post laparoscopic cholecystectomy. Postoperative day 1. Having some residual pain from trapped gas in the abdomen. This should resolve over time. Also incisional pain around port sites. She is on some scheduled IV ibuprofen today. Continue to advance diet as tolerated. Leave drain in today but there is no bilious output. Liver enzymes are slightly elevated for the AST and ALT but that is expected after the amount of dissection of the gallbladder off of the liver bed yesterday. Total bilirubin is normal. Will keep her in the hospital today on the IV antibiotics due to the severe nature of acute cholecystitis. Hopefully she is doing better tomorrow then she can likely discharge home tomorrow and the drain can be removed. Up walking the hallways as much as possible today to help her with the gas pain. Subjective Date/time seen: 10/21/23 08:18 Interval history: Patient is doing better this morning. She is still having significant pain around her port sites. She is also having some pain from trapped gas after her laparoscopic cholecystectomy. Walking seems to help the pain. She has tolerated some liquids without difficulty. White blood cell count is normal. AST and ALT are slightly elevated but not markedly so. The bilirubin is decreased and normal. Output from the CHARLES drain is nonbilious. Exam Const: General: comfortable and no acute distress Neck: Neck: supple Resp: Effort & Inspection: normal respiratory effort Auscultation: clear to auscultation bilaterally Cardio: Rate: regular rate Rhythm: regular rhythm GI: Other: Abdomen is soft and minimally distended. She has [id number] tenderness around her port sites. There is no redness or drainage from the port sites. CHARLES drain is serosanguineous without evidence of any bilious drainage. Neuro: Speech: normal speech Extrem: General: normal to inspection Psych: Mental Status: mental status grossly normal Affect: normal affect Objective Data Vital Signs Vital Signs: Vital Signs - 24 hr 10/20/23 09:15 10/20/23 11:33 10/20/23 11:45 Temperature 36.6 C 36.2 C L Pulse Rate 48 L 70 61 Respiratory Rate 17 14 Blood Pressure 116/55 L 137/69 127/62 Pulse Oximetry 95 100 100 Oxygen Delivery Room Air Simple Face Mask Simple Face Mask Oxygen Flow Rate 6 6 10/20/23 12:00 10/20/23 12:15 10/20/23 12:30 Temperature Pulse Rate 63 64 61 Respiratory Rate 16 16 16 Blood Pressure 127/54 L 121/45 L 117/54 L Pulse Oximetry 100 100 92 Oxygen Delivery Simple Face Mask Room Air Room Air Oxygen Flow Rate 6 10/20/23 12:45 10/20/23 13:10 10/20/23 13:25 Temperature 36.6 C 35.9 C L 36.3 C L Pulse Rate 69 70 54 L Respiratory Rate 18 20 18 Blood Pressure 123/51 L 136/56 L 120/52 L Pulse Oximetry 94 98 93 Oxygen Delivery Room Air Oxygen Flow Rate 10/20/23 13:55 10/20/23 14:00 10/20/23 14:55 Temperature 36.1 C L 36.4 C L Pulse Rate 54 L 57 L 70 Respiratory Rate 19 18 17 Blood Pressure 107/53 L 105/57 L Pulse Oximetry 95 99 Oxygen Delivery Oxygen Flow Rate 10/20/23 21:27 10/20/23 20:00 10/20/23 22:18 Temperature 36.6 C Pulse Rate 60 Respiratory Rate 14 Blood Pressure 104/49 L Pulse Oximetry 99 99 98 Oxygen Delivery Nasal Cannula Nasal Cannula Oxygen Flow Rate 2 2 10/21/23 05:31 10/21/23 05:31 Temperature 36.6 C Pulse Rate 62 Respiratory Rate 16 Blood Pressure 112/48 L Pulse Oximetry 98 98 Oxygen Delivery Room Air Oxygen Flow Rate Intake/Output Intake/Output: Intake & Output 10/18/23 10/19/23 10/20/23 10/21/23 23:59 23:59 23:59 23:59 Intake Total 50 2638 1704 Output Total 8 50 Balance 50 2630 1654 Meds/Results Medications: Active Medications Generic Name Dose
[2023-10-21] MEDS: FAMOTIDINE 20 MG/2 ML VIAL IV PUSH ×2 (11:12→21:07)
[2023-10-21] MEDS: ASCORBIC ACID 500 MG TABLET PO (11:13)
[2023-10-21] MEDS: CHOLECALCIFEROL 1,000 UNITS TABLET 2000 UNITS PO (11:13)
[2023-10-21] MEDS: POTASSIUM CHLORIDE 20 MEQ ER TABLET 40 MEQ PO (11:13)
[2023-10-21] MEDS: POTASSIUM CHLORIDE 10 MEQ ER TABLET PO (11:14)
--- NOTE | 2023-10-21 12:34 | PM.IMPN ---
Progress Note: A&P Assessment and Plan (1) Cholecystitis: Code(s): K81.9 - Cholecystitis, unspecified Status: Acute Assessment and Plan: Patient presents to the ED with several days of intermittent right upper quadrant pain as detailed above. Imaging in the emergency department is concerning for acute cholecystitis. Analgesics and antiemetics are available as needed. Dr. Ortiz has been consulted and his input is appreciated. POD 1; patient having some pain with movement but otherwise doing well. Advance diet as tolerated. If tolerating diet will likely discharge tomorrow. (2) Gallbladder polyp: Code(s): K82.4 - Cholesterolosis of gallbladder Status: Acute Assessment and Plan: Right upper quadrant ultrasound showed findings suggestive of gallbladder polyps. Dr. Ortiz has been consulted. Cholecystectomy performed today. (3) Mild dehydration: Code(s): E86.0 - Dehydration Status: Resolved Assessment and Plan: resolved. (4) Hypertension: Code(s): I10 - Essential (primary) hypertension Status: Acute Assessment and Plan: Blood pressures were reviewed and they are stable. Continue losartan but hold hydrochlorothiazide given mild hyponatremia. (5) Hypothyroidism: Code(s): E03.9 - Hypothyroidism, unspecified Status: Acute Assessment and Plan: TSH WNL (6) Abnormal finding on urinalysis: Code(s): R82.90 - Unspecified abnormal findings in urine Status: Acute Assessment and Plan: not having any urinary symptoms at this time. Urine culture WNL. Subjective Date/time seen: 10/21/23 12:34 Interval history: Patient having some gas pains as well as pain at the incision lines today. She states that when she walks her gas pains do improved. She has not had a bowel movement yet. Plan to advance her diet. Likely discharge tomorrow. Exam Narrative: GENERAL: Comfortable, no acute distress HENMT: moist mucous membranes EYES: EOM intact b/l NECK: no lymphadenopathy RESPIRATORY: clear to auscultation CARDIO: RRR GI: soft, mild tenderness, bowel sounds present, distended SKIN: no rashes EXTREMITIES: no edema, redness or tenderness Objective Data Vital Signs Vital Signs: Vital Signs - 24 hr 10/20/23 12:45 10/20/23 13:10 10/20/23 13:25 Temperature 97.9 F 96.7 F L 97.3 F L Pulse Rate 69 70 54 L Respiratory Rate 18 20 18 Blood Pressure 123/51 L 136/56 L 120/52 L Pulse Oximetry 94 98 93 Oxygen Delivery Room Air Oxygen Flow Rate 10/20/23 13:55 10/20/23 14:00 10/20/23 14:55 Temperature 96.9 F L 97.5 F L Pulse Rate 54 L 57 L 70 Respiratory Rate 19 18 17 Blood Pressure 107/53 L 105/57 L Pulse Oximetry 95 99 Oxygen Delivery Oxygen Flow Rate 10/20/23 21:27 10/20/23 20:00 10/20/23 22:18 Temperature 97.8 F Pulse Rate 60 Respiratory Rate 14 Blood Pressure 104/49 L Pulse Oximetry 99 99 98 Oxygen Delivery Nasal Cannula Nasal Cannula Oxygen Flow Rate 2 2 10/21/23 05:31 10/21/23 05:31 Temperature 97.9 F Pulse Rate 62 Respiratory Rate 16 Blood Pressure 112/48 L Pulse Oximetry 98 98 Oxygen Delivery Room Air Oxygen Flow Rate Intake/Output Intake/Output: Intake & Output 10/18/23 10/19/23 10/20/23 10/21/23 23:59 23:59 23:59 23:59 Intake Total 50 2638 1824 Output Total 8 50 Balance 50 2630 1774 Meds/Results Medications: Active Medications Generic Name Dose Route Start Last Admin Trade Name Freq PRN Reason Stop Dose Admin Acetaminophen 650 mg 10/20/23 12:58 Acetaminophen 325 Mg Tablet PO Q6H PRN Mild Pain (1-3) or Fever Hydrocodone Bitart/Acetaminophen 1 tab 10/20/23 11:52 10/21/23 11:13 Hydrocodone/Acetaminophen (*Crx) 5-325 Mg Tablet PO 1 tab Q4H PRN Administration Pain Rated 4-6 Albuterol 1 puff 10/19/23 23:18 Albuterol Sulfate (*Sp
[2023-10-21 13:47] VITALS: BP 105/52; PULSE 58; RESP 16; TEMP 37.1; O2SAT 92
[2023-10-21] MEDS: IBUPROFEN IV 400 MG in SODIUM CHLORIDE 0.9% IV 100 ML 100 MG IVPB (15:12)
[2023-10-21] MEDS: LOSARTAN POTASSIUM 100 MG TABLET PO (21:06)
[2023-10-21] MEDS: ATORVASTATIN 20 MG TABLET PO (21:07)
[2023-10-21] MEDS: hydroCHLOROthiazide 25 MG TABLET PO (21:07)
[2023-10-21 21:51] VITALS: BP 121/60; PULSE 61; RESP 20; TEMP 37.1; O2SAT 97
[2023-10-22] MEDS: PIPERACILLN/TAZ 3.375GM/NS50ML 3.375 GM/50 ML BAG IVPB (05:15)
[2023-10-22] MEDS: LEVOTHYROXINE SODIUM 50 MCG TABLET PO (05:15)
[2023-10-22] MEDS: polyethylene glycoL 3350 17 GM POWD.PACK PO (05:20)
[2023-10-22 05:48] VITALS: BP 121/54; PULSE 55; RESP 20; TEMP 36.6; O2SAT 94
[2023-10-22 08:00] VITALS: PULSE 55; RESP 20; O2SAT 94
[2023-10-22] MEDS: FAMOTIDINE 20 MG/2 ML VIAL IV PUSH (09:07)
--- NOTE | 2023-10-22 11:18 | WPDPN ---
Progress Note: A&P Assessment and Plan (1) S/P laparoscopic cholecystectomy: Code(s): Z90.49 - Acquired absence of other specified parts of digestive tract Status: Acute Assessment and Plan: Improved today. She wants to go home. Will give her a dose of milk of magnesia before she goes home. Okay to stop her IV antibiotics. Will not need any antibiotics at home. CHARLES drain will be removed before she is discharged. Discharge instructions are written with instructions to follow up with me in the office in 2 weeks. Subjective Date/time seen: 10/22/23 11:18 Interval history: Patient feels much better today. Less bloating is passing flatus but no bowel movement for few days. She was taking some pain medications so she could certainly constipated. No nausea or vomiting she tolerated solid food today without difficulty. White blood cell count is normal. Her enzymes are normal as well. Exam GI: Other: Abdomen is soft and mildly distended. Incisions are healing well without any redness or drainage. CHARLES drain output is serous without any bilious output. Objective Data Vital Signs Vital Signs: Vital Signs - 24 hr 10/21/23 13:47 10/21/23 21:51 10/21/23 20:00 Temperature 37.1 C 37.1 C Pulse Rate 58 L 61 Respiratory Rate 16 20 Blood Pressure 105/52 L 121/60 Pulse Oximetry 92 97 Oxygen Delivery Room Air 10/22/23 05:48 Temperature 36.6 C Pulse Rate 55 L Respiratory Rate 20 Blood Pressure 121/54 L Pulse Oximetry 94 Oxygen Delivery Intake/Output Intake/Output: Intake & Output 10/19/23 10/20/23 10/21/23 10/22/23 23:59 23:59 23:59 23:59 Intake Total 50 2638 3404 900 Output Total 8 130 Balance 50 2630 3274 900 Meds/Results Medications: Active Medications Generic Name Dose Route Start Last Admin Trade Name Freq PRN Reason Stop Dose Admin Acetaminophen 650 mg 10/20/23 12:58 Acetaminophen 325 Mg Tablet PO Q6H PRN Mild Pain (1-3) or Fever Hydrocodone Bitart/Acetaminophen 1 tab 10/20/23 11:52 10/21/23 23:56 Hydrocodone/Acetaminophen (*Crx) 5-325 Mg Tablet PO 1 tab Q4H PRN Administration Pain Rated 4-6 Albuterol 1 puff 10/19/23 23:18 Albuterol Sulfate (*Sp) Aerosol 1 Puff INHALATION QID PRN Shortness Of Breath Ascorbic Acid 500 mg 10/20/23 12:58 10/21/23 11:13 Ascorbic Acid 500 Mg Tablet PO 500 mg DAILY@1200 KATERINE Administration Atorvastatin Calcium 20 mg 10/20/23 21:00 10/21/23 21:07 Atorvastatin 20 Mg Tablet PO 20 mg HS KATERINE Administration Famotidine 20 mg 10/20/23 21:00 10/22/23 09:07 Famotidine 20 Mg/2 Ml Vial IV PUSH 20 mg Q12HR KATERINE Administration Hydrochlorothiazide 25 mg 10/20/23 21:00 10/21/23 21:07 Hydrochlorothiazide 25 Mg Tablet PO 25 mg HS KATERINE Administration Hydromorphone HCl 0.5 mg 10/20/23 12:58 10/20/23 14:35 Hydromorphone Hcl Inj (*Crx) 1 Mg/Ml Syr IV PUSH 0.5 mg Q3H PRN Administration Pain Rated 7-10 Piperacillin/Tazobactam/Dextrose 3.375 gm in 50 mls @ 100 mls/hr 10/20/23 00:00 10/22/23 05:45 Zosyn 3.375 Gm/Ns 50 Ml IVPB Infused Q6H KATERINE Infusion Lactated Ringer's 1,000 mls @ 100 mls/hr 10/20/23 09:05 10/22/23 02:15 Lr - Lactated Ringers Iv IV CONT Not Given .Q10H KATERINE Levothyroxine Sodium 50 mcg 10/20/23 06:30 10/22/23 05:15 Levothyroxine Sodium 50 Mcg Tablet PO 50 mcg 0630 KATERINE Administration Losartan Potassium 100 mg 10/20/23 21:00 10/21/23 21:06 Losartan Potassium 100 Mg Tablet PO 11/19/23 20:59 100 mg HS KATERINE Administration Ondansetron HCl 4 mg 10/20/23 12:58 10/21/23 05:14 Ondansetron Inj 4 Mg/2 Ml Vial IV PUSH 4 mg Q6H PRN Administration Nausea And Vomiting Polyethylene Glycol 17 gm 10/21/23 20:48 10/22/23 05:20 Polyethylene Glycol 3350 17 Gm Powd.Pack PO 17 gm QAM PRN Administration Constipation Potassium Chloride 10 meq 10/20/23 12:58 10/21/23 11:14 Yadiel
[2023-10-22] MEDS: MAGNESIUM HYDROXIDE SUSP 30 ML UDC PO (12:13)
--- NOTE | 2023-10-22 13:50 | PM.DS ---
DS: Admitting Diagnosis Discharge Date 10/22/22 Admitting Diagnosis Acute cholecystitis DS: Discharge Diagnosis Discharge Diagnosis (1) Cholecystitis: Code(s): K81.9 - Cholecystitis, unspecified Status: Acute (2) Gallbladder polyp: Code(s): K82.4 - Cholesterolosis of gallbladder Status: Acute (3) Mild dehydration: Code(s): E86.0 - Dehydration Status: Resolved (4) Hypertension: Code(s): I10 - Essential (primary) hypertension Status: Acute (5) Hypothyroidism: Code(s): E03.9 - Hypothyroidism, unspecified Status: Acute (6) Abnormal finding on urinalysis: Code(s): R82.90 - Unspecified abnormal findings in urine Status: Acute DS: Summary Hospital Course Hospital Course: This is a 73-year-old female smoker with a past medical history of hypertension, hyperlipidemia and hypothyroidism the presented to the ED on 10/19/2023 for evaluation of abdominal pain. Pain was worse with oral intake. CT of the abdomen pelvis revealing a distended gallbladder with mild gallbladder wall thickening and minimal moisés cholecystic fat stranding. Right upper quadrant ultrasound showing distended gallbladder with borderline gallbladder wall thickening and suggestion of multiple small polyps in the gallbladder with positive sonographic Hernandez sign. She was started on IV antibiotics of Zosyn, IV fluids and pain control. General surgery was consulted. Patient underwent acute cholecystectomy 10/20/2023. Patient tolerated this procedure well. Pain was well controlled postoperatively. Patient did have drain placed and this was pulled on 10/22/2023. Her diet was advanced and she tolerated this well. general surgery cleared patient for discharge. Her labs and vital signs are stable and she is medically clear for discharge at this time. Time Spent with Patient Time attestation: Total time spent providing and/or coordinating discharge services: Exam Narrative: GENERAL: Comfortable, no acute distress HENMT: moist mucous membranes EYES: EOM intact b/l NECK: no lymphadenopathy RESPIRATORY: clear to auscultation CARDIO: RRR GI: soft, mild tenderness, bowel sounds present, Incision site clean and healing appropriately SKIN: no rashes EXTREMITIES: no edema, redness or tenderness DS: Data Data Completed and Pending Completed studies during hospitalization: Pending at discharge 10/20/23 09:54 Surgical [PTH] Routine Discharge Plan Discharge Attending physician on discharge: Doshi,Changqing Consulting providers: Rose Villegas; Capo Ortiz Discharging Clinician: Miri Dean Anticipated Discharge Date/Time: 10/22/23 11:22 Patient Disposition: Home, Self-Care Activity: may shower Diet: regular Wound Care Instructions: other - see discharge instructions Discharge Instructions: Follow up with Dr. Ortiz in the office in 2 weeks. Patient to call [phone] for an appointment. May shower in 24hours but do not soak incisions under water for 2 weeks. No lifting more than 10 to 15 lb for 2 weeks. May advance diet as tolerated. No driving for at least 3 days or until no longer taking any narcotic pain medication. Resume all home medications. Prescription for narcotic pain medicines will be sent to the patient's pharmacy if needed. May use Tylenol and/or ibuprofen in addition to or in place of narcotic pain medications for postoperative pain. Discharge disposition: Take medications as prescribed Monitor blood pressures Avoid social areas, you wear a mask when in social settings Encouraged to continue with yearly vaccinations Return to the emergency department if he developed sudden shortness of breath, chest pain, nausea, vomiting, upset stomach or intractable diarrhea Return to the emergency department if you develop fever greater than 100.4 Follow-up with the primary care physician within 1-2 weeks Thank you for collette
--- NOTE | 2023-10-22 15:45 | PC.NURSE ---
Pt requesting to be discharged. Surgeon rounded on pt this AM stating OK to discharge. Does not want to wait for Hospitalist Provider to make rounds. Provider notified and orders received.
--- NOTE | 2023-10-22 15:45 | PC.NURSE ---
Pt called from home stating incision site closest to navel appears too red. Redness not noted on discharge assessment per this nurse. Pt reminded that she insisted to leave hospital prior to Provider rounding. Stated Dr Ortiz can see me at my appointment. Pt states that she will call Dr Ortiz. Notified that she could do that but if the site looks too red or worsens she should seek evaluation form the ER. Verbalized understanding.
== END 2023-10-22 14:05 | disposition home or self-care (01) | DRG 418 ==
LOC: ANHED 17:05 → ANH3MEDSUR 19:24
PROVIDERS: Emergency Medicine; Physician Assistant; Surgery; Admitting Provider General Practice; Emergency Provider Physician Assistant; Visit Provider Internal Medicine Critical Care Medicine
PROC: 0FT44ZZ Resection of Gallbladder, Percutaneous Endoscopic Approach (ICD-10-PCS; CPT 47562; principal; 2023-10-20 09:30)
DX: K80.00 Calculus of gallbladder with acute cholecystitis without obstruction (principal); K91.61 Intraoperative hemorrhage and hematoma of a digestive system organ or structure complicating a digestive system procedure; K91.71 Accidental puncture and laceration of a digestive system organ or structure during a digestive system procedure; I10 Essential (primary) hypertension; E78.5 Hyperlipidemia, unspecified; E03.9 Hypothyroidism, unspecified; E86.0 Dehydration
CPT/HCPCS: 36415; 74177; 76705; 80053; 81001; 83690; 83735; 84443; 84484; 85025; 85027; 87086; 88304; 93005; 94640; 96361; 96365; 96375; 99285; A9270; C1713; C9113; G0378; J1100; J1170; J1741; J2250; J2405; J2543; J2704; J3010; J7030; J7120; Q9967

== ENCOUNTER 2024-05-07 09:00 | Outpatient (RCR) | payer MEDICARE, SELFPAY ==
--- NOTE | 2024-04-02 16:14 | OPREHPOC ---
Outpatient Therapy Plan of Care This is a Multidisciplinary Plan of Care that may contain components documented by all disciplines (PT, OT, and ST.) PT Problem 1 PT Problem #1 Knowledge Deficit PT Goal 1 Goal [place] with HEP Target Visit 4 PT Goal 1 Goal Patient will demonstrate 40 degrees of nilsa hip abduction for reduced capsular restriction of hip joint Target Visit 8 PT Goal 2 Goal Patient will demonstrate -25 degrees bilaterally on hamstring 90/90 for reduced posterior chain pull Target Visit 8 PT Problem 3 PT Problem #3 Impaired Strength PT Goal 1 Goal Improve nilsa hip abduction strength to 4+/5 to improve lateral stability with ambulation and functional activity Target Visit 8
--- NOTE | 2024-04-02 16:14 | PTOPEVAL1 ---
Assessment and note entered by Gustavo Callahan, PT Evaluation Information Assessment Status Evaluation ICD-10 Condition Codes (PT) Pain in low back M54.50 Onset 5 years ago Subjective Information Reports that most of her pain was starting in her heel. She is having tightness in the calf and numbness in the calf. When she is up moving around it seems to be better for her. She has a lumbar spine x-ray. When she stands she has weakness in her leg and her right foot starts getting numb. Reports that when she first gets up in the morning she has a lot of stiffness in the calf. She cannot sit for a long time either. She has been through therapy before and it has helped in the past. When she first steps down in the morning she has a lot of heel pain as well. Reported Pain Level Pain Score 4: Self Report Assessment PT Clinical Summary Patient presents with signs and symptoms consistent with lumbar stenosis resulting in low back pain and radiculopathy. Patient will benefit form skilled therapy to address these deficits for core strengthening. hip mobility, and strength. Plan of Care Interventions Gait Training,Manual Therapy,Neuro Re-education, Therapeutic Activities,Therapeutic Exercise PT Services Indicated Yes Treatment Frequency and 2x/week for 8 visits Duration These treatments will address the objective and functional deficits as defined above. The patient will be advanced safely and appropriately in order for the patient to progress towards his/her prior level of function. Additional exercises will be introduced and as well as a comprehensive home exercise program upon discharge, if needed, ?to ensure carryover of functional gains achieved in the clinic. This treatment plan has been reviewed and agreement upon by the patient.
--- NOTE | 2024-05-07 10:08 | OPREHPOC ---
Outpatient Therapy Plan of Care This is a Multidisciplinary Plan of Care that may contain components documented by all disciplines (PT, OT, and ST.) PT Problem 1 PT Problem #1 Knowledge Deficit PT Goal 1 Goal / Goal Update [place] with HEP Target Visit 4 Progress Met PT Goal 1 Goal / Goal Update Patient will demonstrate 40 degrees of nilsa hip abduction for reduced capsular restriction of hip joint Target Visit 8 Progress Met PT Goal 2 Goal / Goal Update Patient will demonstrate -25 degrees bilaterally on hamstring 90/90 for reduced posterior chain pull Target Visit 8 Progress Met PT Problem 3 PT Problem #3 Impaired Strength PT Goal 1 Goal / Goal Update Improve nilsa hip abduction strength to 4+/5 to improve lateral stability with ambulation and functional activity Target Visit 8 Progress Partially Met Comment Improved
--- NOTE | 2024-05-07 10:08 | PTOPDC ---
Assessment and note entered by Gustavo Callahan, PT Evaluation Information Assessment Status Discharge ICD-10 Condition Codes (PT) Pain in low back M54.50 Onset 5 years ago Subjective Information Reports that therapy has been helping. Has modified her sleeping to trying to sleep more on her back and it is helping. She did wake up this morning a little more sore than usual. Continues to have some heel soreness and calf cramping. She has been diligent with her home exercises. Reported Pain Level Pain Score 0: Self Report Assessment PT Clinical Summary Patient met all goals for therapy with the exception of lateral hip strength but has shown progress with this measure and has ample HEP to continue to address hip mobility, back decompression, and lateral hip strengthening for mobility and stability goals. Plan of Care PT Services Indicated D/C to HEP
== END 2024-05-07 11:09 | disposition home or self-care (01) ==
LOC: ANHPT 09:00
DX: M54.50 Low back pain, unspecified (principal); N20.0 Calculus of kidney
CPT/HCPCS: 97110; 97140; 97161; 97530